=== PATIENT | male | born 1970 | race Caucasian/White ===

== ENCOUNTER 2022-06-06 12:33 | Inpatient (IN) | payer OTHER, SELFPAY ==
[2022-06-06 12:43] VITALS: BP 136/72; BP 99/71; PULSE 76; PULSE 98; RESP 17; TEMP 36.4; O2SAT 97; BMI 27.7
--- NOTE | 2022-06-06 12:44 | ED.PSYCH ---
HPI - Psych General Chief Complaint: Psychiatric Symptoms Stated Complaint: SI w/ no plan Time Seen by Provider: 06/06/22 12:43 Source: patient and EMS Mode of arrival: EMS History of Present Illness HPI Narrative: 51-year-old male with a past medical history of arthritis, asthma, depression, HTN, CAD, seizures, presenting to the ED on Section 12 from [facility] due to SI and auditory hallucinations. Patient states issues with psychiatrist/prescriber over the past year, admits PCP has been managing medications and recently decreased his clonazepam. States he is trying to get into respite however cannot without proper medication prescriptions. Reports SI x months with plan he will not describe. Patient reports history of SI attempt in the past. States recently homeless as of last week, with decreased p.o. intake. Denies illicit substance/ETOH use. Also reports visual hallucinations. Denies fever, chills, cough, abdominal pain, nausea/vomiting MD complaint: suicidal ideation Onset (ago): week(s) Related Data Allergies Allergy/AdvReac Type Severity Reaction Status Date / Time aspirin [ASPIRIN] AdvReac Mild STOMACH Unverified 05/31/20 15:27 UPSET Review of Systems Review of Systems: Constitutional: No Fever, No Chills, No Fatigue, No Malaise ENT/Mouth: No Ear Pain, No Nasal Congestion, No sore throat, No Rhinorrhea, No Swallowing Difficulty Eyes: No Eye Pain, No Swelling, No Redness, No Vision Changes Cardiovascular: No Chest Pain, No SOB, No Palpitations Respiratory: No Cough, No Sputum, No Dyspnea Gastrointestinal: No Nausea, No Vomiting, No Diarrhea, No Constipation, No Abdominal pain Genitourinary: No irregular bleeding, No Dysuria, No Urinary Frequency Musculoskeletal: No joint pain, No Myalgias, No Joint Swelling Skin: No Skin Lesions, No rash Neuro: No Weakness, No Numbness, No No Headache Psych: No Anxiety/Panic, + Depression, + SI,AH/VH, + Social Issues Yes all other systems are reviewed and are negative Constitutional: Constitutional: Reports as per HPI [facility] Past Medical History Attestation statement: The following information was validated with the patient. Social History Social History Patient Tobacco Use Status: Current everyday Tobacco user Smoked in Last 30 Days: Yes Use of substances other than those prescribed or required for medical reasons: No Advance Directives: No Advance Directives Information Provided: Yes Physical Exam Vital Signs: Vital Signs: Last Vital Signs Temp 97.6 F 06/06/22 12:56 Pulse 76 06/06/22 12:56 Resp 17 06/06/22 12:56 BP 99/71 06/06/22 12:56 Pulse Ox 97 06/06/22 12:56 O2 Del Method 06/06/22 12:56 BMI result Body Mass Index 27.7 Const: General: cooperative, healthy appearing and no acute distress Orientation/consciousness: patient oriented x3 Limitations: no limitations HEENT: Head: Yes normal to inspection and Yes atraumatic Ears: hearing grossly normal bilaterally General nose exam: Normal external nose present Face and sinus: Yes normal facial exam Eyes: General: appearance normal, both eyes and all related structures Pupils: Equal, round and reactive pupils present EOM: EOMs intact bilaterally Neck: Neck: Yes normal visual inspection and Yes no meningeal signs Resp: Effort & Inspection: normal respiratory effort and no respiratory distress Auscultation: clear to auscultation bilaterally, no rales, no rhonchi and no wheezes Cardio: Rate: regular rate Heart sounds: S1 normal heart sound present and S2 normal heart sound present GI: Inspection: Yes normal to inspection Palpation (GI): Soft to palpation, nontender, no guarding and not rigid : General: Yes no CVA tenderness Back/Spine/Pelvis: Back: no CVA tenderness Skin: Rashes: no rashes Wounds: no wounds Neuro: General: patient oriented x3, tone normal and no meningeal signs Cranial nerves: Yes CN's II-XII intact bilaterally and Yes Equal, round and reactive pupils present Gait exam (Neuro): Normal gait present Extrem: General: Yes normal to inspection Psych: Appearance: grossly normal Thought content: Suicidality present, Hallucination(s) present and Depressive thoughts present Course Course Course Narrative: -no leukocytosis. Labs otherwise unremarkable. Ethanol negative. COVID-19 negative Patient medically cleared for crisis evaluation. Physician observation initiated at 17:54 -2100--ED care transferred to Dr. Olivier pending Crisis eval MDM - Psych MDM Narrative Medical decision making narrative: 51-year-old male with a past medical history of arthritis, asthma, depression, HTN, CAD, seizures, presenting to the ED on Section 12 from [facility] due to SI and auditory hallucinations. On exam vital signs stable, NAD, nontoxic appearing, patient is bed search from [facility]. Will rule out metabolic/infectious etiology Will obtain clearance labs/EKG and drug screen Differential Diagnosis Differential diagnosis: Likely acute psychosis, suicidal ideation, depression, acute anxiety and substance abuse Medical Records Attestation: I reviewed the patient's medical records. Lab Data Attestation: I reviewed the patient's lab results. Result diagrams: 06/06/22 13:18 06/06/22 13:18 Labs: Lab Results 06/06/22 06/06/22 06/06/22 Range/Units 13:18 13:18 13:18 WBC 6.2 (4.8-10.8) X10*3/uL RBC 4.50 L (4.60-5.80) X10*6/uL Hgb 14.0 (14.0-18.0) g/dl Hct 42.2 (42.0-52.0) % MCV 93.8 (80.0-98.0) fL MCH 31.1 (27.0-33.0) pg MCHC 33.2 (31.0-36.0) g/dl RDW 14.4 (11.0-16.0) % Plt Count 264 (160-400) X10*3/uL MPV 8.4 L (9.4-12.4) fL Immature Gran % (Auto) 0.3 (0.0-0.4) % Neut % (Auto) 44.1 L (45-73) % Lymph % (Auto) 47.9 H (20-40) % [place] % (Auto) 4.1 (2-11) % Eos % (Auto) 2.6 (0-4) % Baso % (Auto) 1.0 (0-2) % Lymph # (Auto) 3.0 (1.2-4.9) X10*3/uL [place] # (Auto) 0.3 (0.1-1.2) X10*3/uL Eos # (Auto) 0.2 (0.0-0.4) X10*3/uL Baso # (Auto) 0.1 (0.0-0.2) X10*3/uL Abs Immat Gran (auto) 0.02 (0.00-0.03) X10*3/uL Absolute Neuts (auto) 2.7 (2.0-8.3) x10*3/uL Absolute Nucleated RBC 0.000 (0.0-0.012) X10*3/uL Nucleated RBC % (auto) 0.0 (0.0-0.2) /100WBC Sodium 141 (135-145) mmol/L Potassium 4.2 (3.3-5.1) mmol/L Chloride 106 (96-108) mmol/L Carbon Dioxide 26 (22-29) mmol/L Anion Gap 13 (12-20) BUN 19 H (9-16) mg/dL Creatinine 1.03 (0.5-1.4) mg/dL Estim Creat Clear Calc 85.2 Estimated GFR > 60 Random Glucose 101 (60-115) mg/dL Calcium 9.4 (8.4-10.2) mg/dL Magnesium 2.0 (1.6-2.6) mg/dL Total Bilirubin < 0.2 (0.0-1.0) mg/dL Direct Bilirubin < 0.2 (0.0-0.5) mg/dL AST 16 (5-37) U/L ALT 26 (0-40) U/L Alkaline Phosphatase 101 (39-117) U/L Total Protein 6.9 (6.5-8.0) g/dL Albumin 4.3 (3.5-5.0) g/dL Urine Opiates Screen (Not Detect) Urine Fentanyl Screen (Not Detect) Ur Barbiturates Screen (Not Detect) Ur Phencyclidine Scrn (Not Detect) Ur Amphetamines Screen (Not Detect) U Benzodiazepines Scrn (Not Detect) Urine Cocaine Screen (Not Detect) U Marijuana (THC) Screen (Not Detect) Ethyl Alcohol < 10 mg/dL COVID-19 (CATHERINE) Negative (Negative) COVID-19 Clin Com See Note 06/06/22 Range/Units 14:46 WBC (4.8-10.8) X10*3/uL RBC (4.60-5.80) X10*6/uL Hgb (14.0-18.0) g/dl Hct (42.0-52.0) % MCV (80.0-98.0) fL MCH (27.0-33.0) pg MCHC (31.0-36.0) g/dl RDW (11.0-16.0) % Plt Count (160-400) X10*3/uL MPV (9.4-12.4) fL Immature Gran % (Auto) (0.0-0.4) % Neut % (Auto) (45-73) % Lymph % (Auto) (20-40) % [place] % (Auto) (2-11) % Eos % (Auto) (0-4) % Baso % (Auto) (0-2) % Lymph # (Auto) (1.2-4.9) X10*3/uL [place] # (Auto) (0.1-1.2) X10*3/uL Eos # (Auto) (0.0-0.4) X10*3/uL Baso # (Auto) (0.0-0.2) X10*3/uL Abs Immat Gran (auto) (0.00-0.03) X10*3/uL Absolute Neuts (auto) (2.0-8.3) x10*3/uL Absolute Nucleated RBC (0.0-0.012) X10*3/uL Nucleated RBC % (auto) (0.0-0.2) /100WBC Sodium (135-145) mmol/L Potassium (3.3-5.1) mmol/L Chloride (96-108) mmol/L Carbon Dioxide (22-29) mmol/L Anion Gap (12-20) BUN (9-16) mg/dL Creatinine (0.5-1.4) mg/dL Estim Creat Clear Calc Estimated GFR Random Glucose (60-115) mg/dL Calcium (8.4-10.2) mg/dL Magnesium (1.6-2.6) mg/dL Total Bilirubin (0.0-1.0) mg/dL Direct Bilirubin (0.0-0.5) mg/dL AST (5-37) U/L ALT (0-40) U/L Alkaline Phosphatase (39-117) U/L Total Protein (6.5-8.0) g/dL Albumin (3.5-5.0) g/dL Urine Opiates Screen Not Detected (Not Detect) Urine Fentanyl Screen Not Detected (Not Detect) Ur Barbiturates Screen Not Detected (Not Detect) Ur Phencyclidine Scrn Not Detected (Not Detect) Ur Amphetamines Screen Not Detected (Not Detect) U Benzodiazepines Scrn Not Detected (Not Detect) Urine Cocaine Screen Not Detected (Not Detect) U Marijuana (THC) Screen Not Detected (Not Detect) Ethyl Alcohol mg/dL COVID-19 (CATHERINE) (Negative) COVID-19 Clin Com Discharge Plan Discharge Clinical Impression: Suicidal ideation, Depression, Hallucinations Patient Disposition: Still a Patient
[2022-06-06 12:56] VITALS: BP 99/71; PULSE 76; RESP 17; TEMP 36.4; O2SAT 97
[2022-06-06] MEDS: Nicotine 21 MG PATCH.TD24 TRANSDERMA (13:07)
[2022-06-06 13:24] LABS: MANUAL DIFF FLAG NO
[2022-06-06 13:25] LABS: Basophils Absolute Auto 0.1 X10*3/uL (0.0-0.2); Eosinophils Absolute Auto 0.2 X10*3/uL (0.0-0.4); Eosinophils Percent Auto 2.6 % (0-4); Hematocrit 42.2 % (42.0-52.0); Imm Gran Abs Auto 0.02 X10*3/uL (0.00-0.03); Imm Gran Pct Auto 0.3 % (0.0-0.4); Lymphocytes Percent Auto 47.9 % (20-40); Mean Corpuscular HGB Conc 33.2 g/dl (31.0-36.0); Mean Corpuscular Hemoglobin 31.1 pg (27.0-33.0); Mean Corpuscular Volume 93.8 fL (80.0-98.0); Mean Platelet Volume 8.4 fL (9.4-12.4); Monocytes Absolute Auto 0.3 X10*3/uL (0.1-1.2); Monocytes Percent Auto 4.1 % (2-11); Neutrophils Absolute Auto 2.7 x10*3/uL (2.0-8.3); Neutrophils Percent Auto 44.1 % (45-73); Platelet Count 264 X10*3/uL (160-400); Red Cell Distribution Width 14.4 % (11.0-16.0); White Blood Count 6.2 X10*3/uL (4.8-10.8)
[2022-06-06 13:39] LABS: COVID-19 Test Negative (Negative); IDNOW Serial# 9DB6401D
[2022-06-06 13:48] LABS: Alanine Aminotransferase 26 U/L (0-40); Albumin Level 4.3 g/dL (3.5-5.0); Alkaline Phosphatase 101 U/L (39-117); Anion Gap 13 (12-20); Aspartate Amino Transferase 16 U/L (5-37); Bilirubin Direct < 0.2 mg/dL (0.0-0.5); Bilirubin Total < 0.2 mg/dL (0.0-1.0); Blood Urea Nitrogen 19 mg/dL (9-16); Calcium 9.4 mg/dL (8.4-10.2); Carbon Dioxide 26 mmol/L (22-29); Chloride 106 mmol/L (96-108); Creatinine Clr Calc Pharmacy 85.2; Estimated Glomerular Filt Rate > 60; Ethanol < 10 mg/dL; Glucose Random 101 mg/dL (60-115); Potassium 4.2 mmol/L (3.3-5.1); Sodium 141 mmol/L (135-145); Total Protein 6.9 g/dL (6.5-8.0)
[2022-06-06 15:20] LABS: Amphetamine Screen Urine Not Detected (Not Detect); Barbiturates, Urine Not Detected (Not Detect); Benzodiazepines Screen Urine Not Detected (Not Detect); Cannabinoid Screen Urine Not Detected (Not Detect); Cocaine Screen Urine Not Detected (Not Detect); Fentanyl, urine Not Detected (Not Detect); Opiate Screen Urine Not Detected (Not Detect); Phencyclidine Screen Urine Not Detected (Not Detect)
[2022-06-06] MEDS: clonazePAM 1 MG TABLET 2 MG PO ×2 (18:00→21:24)
[2022-06-06] MEDS: Propranolol HCL 20 MG TABLET PO (21:24)
[2022-06-06] MEDS: Prazosin HCL 1 MG CAPSULE 2 MG PO (21:25)
[2022-06-06] MEDS: hydrOXYzine HCL 25 MG TABLET PO (21:25)
[2022-06-06] MEDS: TiZANidine HCL 4 MG TABLET PO (21:25)
[2022-06-06] MEDS: OXcarbazepine 300 MG TABLET 1200 MG PO (21:25)
[2022-06-06] MEDS: traZODone HCL 50 MG TABLET PO (21:25)
[2022-06-06] MEDS: QUEtiapine Fumarate 400 MG TABLET PO (21:25)
[2022-06-06 22:07] VITALS: BP 124/79; PULSE 78; RESP 16; TEMP 36.6; O2SAT 98
--- NOTE | 2022-06-07 06:24 | PC.NURSE ---
Patient slept through the night, no distress observed/reported, behavior non concerning, medication compliant, disposition per [facility] is section 12 inpatient bed search, gait independent, elimination intact, VSS, will continue to monitor.
[2022-06-07 06:30] VITALS: BP 111/64; PULSE 83; RESP 17; TEMP 36.7; O2SAT 99
--- NOTE | 2022-06-07 07:38 | PC.NURSE ---
patient appears to remain asleep at present respirations are even and unlabored patient appears in no distress
[2022-06-07] MEDS: Propranolol HCL 20 MG TABLET PO ×2 (08:08→19:36)
[2022-06-07] MEDS: OXcarbazepine 300 MG TABLET 1200 MG PO ×2 (08:08→19:36)
[2022-06-07] MEDS: hydrOXYzine HCL 25 MG TABLET PO ×4 (08:08→19:37)
[2022-06-07] MEDS: QUEtiapine Fumarate 400 MG TABLET PO ×2 (08:08→19:36)
[2022-06-07] MEDS: DULoxetine HCl 60 MG CAPSULE.DR PO (08:08)
[2022-06-07] MEDS: TiZANidine HCL 4 MG TABLET PO ×3 (08:17→19:37)
[2022-06-07] MEDS: Ibuprofen 800 MG TABLET PO (16:42)
[2022-06-07] MEDS: Nicotine 14 MG PATCH.TD24 TRANSDERMA (19:30)
[2022-06-07] MEDS: clonazePAM 1 MG TABLET 2 MG PO (19:36)
[2022-06-07] MEDS: traZODone HCL 50 MG TABLET PO (19:37)
[2022-06-07] MEDS: Prazosin HCL 1 MG CAPSULE 2 MG PO (19:37)
[2022-06-07 19:46] VITALS: BP 108/58; PULSE 97; RESP 16; O2SAT 97
--- NOTE | 2022-06-08 | ECG_ITS ---
Test Reason : GENERAL MEDICAL Blood Pressure : / mmHG Vent. Rate : 081 BPM Atrial Rate : 081 BPM P-R Int : 150 ms QRS Dur : 084 ms QT Int : 358 ms P-R-T Axes : 062 067 048 degrees QTc Int : 415 ms Normal sinus rhythm Normal ECG When compared with ECG of 01-NOV-2015 14:20, No significant change was found Referred By: Brian Robles Electronically Signed By:RIVAS BARRIOS
[2022-06-08 04:46] VITALS: BP 130/82; PULSE 77; RESP 16; TEMP 36.5; O2SAT 97
--- NOTE | 2022-06-08 06:34 | PC.NURSE ---
Patient slept through the night, no distress observed/reported, behavior non concerning, medication compliant, disposition per [facility] is section 12 inpatient bed search, no update on bed search, gait independent, elimination intact, VSS, will continue to monitor.
--- NOTE | 2022-06-08 07:12 | PC.NURSE ---
patient appears to remain asleep at present respirations are even and unlabored patient appears in no distress.
[2022-06-08] MEDS: QUEtiapine Fumarate 400 MG TABLET PO ×2 (07:58→21:44)
[2022-06-08] MEDS: DULoxetine HCl 60 MG CAPSULE.DR PO (07:58)
[2022-06-08] MEDS: hydrOXYzine HCL 25 MG TABLET PO ×4 (07:58→21:44)
[2022-06-08] MEDS: Propranolol HCL 20 MG TABLET PO ×2 (07:58→21:44)
[2022-06-08] MEDS: OXcarbazepine 300 MG TABLET 1200 MG PO ×2 (07:58→21:43)
[2022-06-08] MEDS: Nicotine 21 MG PATCH.TD24 TRANSDERMA (07:58)
[2022-06-08] MEDS: TiZANidine HCL 4 MG TABLET PO ×3 (08:09→21:44)
[2022-06-08 09:35] VITALS: BP 112/63; PULSE 97; RESP 16; TEMP 36.6; O2SAT 98
[2022-06-08] MEDS: Ibuprofen 800 MG TABLET PO (15:39)
[2022-06-08 18:05] VITALS: BP 136/70; PULSE 82; RESP 16; TEMP 36.4; O2SAT 98
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
[2022-06-08] MEDS: clonazePAM 1 MG TABLET 2 MG PO (21:42)
[2022-06-08] MEDS: Prazosin HCL 1 MG CAPSULE 2 MG PO (21:42)
[2022-06-08] MEDS: traZODone HCL 50 MG TABLET PO (21:44)
[2022-06-09] MEDS: hydrOXYzine HCL 25 MG TABLET PO ×4 (08:29→20:42)
[2022-06-09] MEDS: DULoxetine HCl 60 MG CAPSULE.DR PO (08:29)
[2022-06-09] MEDS: QUEtiapine Fumarate 400 MG TABLET PO ×2 (08:29→20:43)
[2022-06-09] MEDS: TiZANidine HCL 4 MG TABLET PO ×3 (08:30→20:42)
[2022-06-09] MEDS: OXcarbazepine 300 MG TABLET 1200 MG PO ×2 (08:30→20:43)
[2022-06-09 09:10] LABS: Alanine Aminotransferase 52 U/L (0-40); Albumin Level 4.5 g/dL (3.5-5.0); Alkaline Phosphatase 108 U/L (39-117); Anion Gap 13 (12-20); Aspartate Amino Transferase 25 U/L (5-37); Bilirubin Total < 0.2 mg/dL (0.0-1.0); Blood Urea Nitrogen 10 mg/dL (9-16); Calcium 9.7 mg/dL (8.4-10.2); Carbon Dioxide 27 mmol/L (22-29); Chloride 99 mmol/L (96-108); Cholesterol 224 mg/dL; Creatinine Clr Calc Pharmacy 129.1; Estimated Glomerular Filt Rate > 60; Glucose Fasting 112 mg/dL (60-99); HDL Cholesterol 54 mg/dL; LDL Cholesterol Calculated 134 mg/dl; Potassium 4.9 mmol/L (3.3-5.1); Sodium 134 mmol/L (135-145); Total Protein 7.1 g/dL (6.5-8.0); Triglycerides 181 mg/dL
[2022-06-09 09:23] VITALS: BP 97/53; PULSE 78; RESP 16; TEMP 36.7; O2SAT 100
[2022-06-09] MEDS: clonazePAM 1 MG TABLET PO ×2 (13:17→20:43)
[2022-06-09] MEDS: Nicotine 14 MG PATCH.TD24 TRANSDERMA (13:17)
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
[2022-06-09 20:35] VITALS: BP 111/59; PULSE 78; RESP 18; TEMP 36.5; O2SAT 97
[2022-06-09] MEDS: Prazosin HCL 1 MG CAPSULE 2 MG PO (20:41)
[2022-06-09] MEDS: Propranolol HCL 20 MG TABLET PO (20:42)
[2022-06-09] MEDS: traZODone HCL 50 MG TABLET PO (20:42)
[2022-06-10] MEDS: Acetaminophen 325 MG TABLET 650 MG PO (03:44)
[2022-06-10 08:00] VITALS: BP 120/60; PULSE 80; TEMP 36.3; O2SAT 98
[2022-06-10] MEDS: clonazePAM 1 MG TABLET PO ×2 (08:37→20:04)
[2022-06-10] MEDS: OXcarbazepine 300 MG TABLET 1200 MG PO ×2 (08:37→20:04)
[2022-06-10] MEDS: QUEtiapine Fumarate 400 MG TABLET PO ×2 (08:37→20:04)
[2022-06-10] MEDS: Propranolol HCL 20 MG TABLET PO ×2 (08:37→20:04)
[2022-06-10] MEDS: TiZANidine HCL 4 MG TABLET PO (08:37)
[2022-06-10] MEDS: DULoxetine HCl 60 MG CAPSULE.DR PO (08:38)
[2022-06-10] MEDS: Nicotine 14 MG PATCH.TD24 TRANSDERMA (08:38)
[2022-06-10] MEDS: hydrOXYzine HCL 25 MG TABLET PO ×4 (08:38→20:04)
[2022-06-10 09:52] VITALS: BP 94/61; PULSE 78
--- NOTE | 2022-06-10 14:33 | P.PNPSI_ITS ---
Subjective Subjective Date of Service: 06/10/22 Reason For Visit: depression, si Interim History: calm and cooperative. agreeable to change muscle relaxant, which he was not on prior to admission, to PRN. also to reduce klonopin to 0.5 mg in the morning and 1 mg at HS. 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 pt reports he is sleeping well, about 7.5 hours, and makes no complaints of anxiety or any other mental health topic. per staff, 3-day up . hoping to discharge to respite. expressed anxiety to staff re the unknown future. went to [facility] at 2300, up at 0330 and on. c/o [facility]. Mental Status Exam Mental Status Exam Narrative: calm, cooperative. goatee. adequately dressed and groomed. cooperative. speech soft and monotone. decr amount, rate. nml latency. thoughts linear and logical. affect constricted, hypo-intense, non-labile. no SI/HI/AVH expressed. Diagnostics Vital Signs (24Hr): Vital Signs - 24 hr 06/09/22 20:35 06/10/22 09:52 06/10/22 08:00 Temperature 97.7 F 97.4 F Pulse Rate 78 78 80 Respiratory Rate 18 Blood Pressure 111/59 L 94/61 120/60 Pulse Oximetry 97 98 Oxygen Delivery Method Room Air Room Air BMI result Body Mass Index 27.7 Labs Results: 06/06/22 13:18 06/09/22 08:27 Labs: Laboratory Results - last 48 hr 06/09/22 08:27 Sodium 134 L Potassium 4.9 Chloride 99 Carbon Dioxide 27 Anion Gap 13 BUN 10 Creatinine 0.68 Estim Creat Clear Calc 129.1 Estimated GFR > 60 Fasting Glucose 112 H Calcium 9.7 Total Bilirubin < 0.2 AST 25 D ALT 52 H Alkaline Phosphatase 108 Total Protein 7.1 Albumin 4.5 Triglycerides 181 Cholesterol 224 LDL Cholesterol, Calc 134 HDL Cholesterol 54 Medications Medications Current Medications Acetaminophen (Acetaminophen 325 Mg Tablet) 650 mg PO Q6H PRN PRN Reason: Headache/Pain Mild Scale (1-3) Last Admin: 06/10/22 03:44 Dose: 650 mg Al Hydroxide/Mg Hydroxide (Magnesium Hydrox/Alum Hydrox 30 Ml Oral.Susp) 30 ml PO Q6H PRN PRN Reason: Heartburn/Nausea Clonazepam (Clonazepam 1 Mg Tablet) 1 mg PO BEDTIME [facility] Clonazepam (Clonazepam 0.5 Mg Tablet) 0.5 mg PO DAILY [facility] Duloxetine HCl (Duloxetine Hcl 60 Mg Capsule.Dr) 60 mg PO DAILY [facility] Last Admin: 06/10/22 08:38 Dose: 60 mg Hydroxyzine HCl (Hydroxyzine Hcl 25 Mg Tablet) 25 mg PO QID [facility] Last Admin: 06/10/22 13:23 Dose: 25 mg Magnesium Hydroxide (Milk Of Magnesia 30 Ml Oral.Susp) 30 ml PO DAILY PRN PRN Reason: Constipation Nicotine (Nicotine 14 Mg Patch.Td24) 14 mg TRANSDERMA DAILY [facility] Last Admin: 06/10/22 08:38 Dose: 14 mg Nicotine Polacrilex (Nicotine Polacrilex Lozenge 2 Mg Lozenge) 2 mg BUCCAL Q1H PRN PRN Reason: Nicotine Cravings Non-Formulary Medication (Deutetrabenazine [Austedo 12mg Start Titr(Wk1-4)]) 1 each PO BID [facility] Patient Own Med (Austedo 6 Mg) 1 each PO BID [facility] Oxcarbazepine (Oxcarbazepine 300 Mg Tablet) 1,200 mg PO BID [facility] Last Admin: 06/10/22 08:37 Dose: 1,200 mg Prazosin HCl (Prazosin Hcl 1 Mg Capsule) 2 mg PO BEDTIME [facility]; Protocol Last Admin: 06/09/22 20:41 Dose: 2 mg Propranolol HCl (Propranolol Hcl 20 Mg Tablet) 20 mg PO BID [facility]; Protocol Last Admin: 06/10/22 08:37 Dose: 20 mg Quetiapine Fumarate (Quetiapine Fumarate 400 Mg Tablet) 400 mg PO BID [facility] Last Admin: 06/10/22 08:37 Dose: 400 mg Tizanidine HCl (Tizanidine Hcl 4 Mg Tablet) 4 mg PO TID PRN PRN Reason: muscle spasm Trazodone HCl (Trazodone Hcl 50 Mg Tablet) 50 mg PO BEDTIME [facility] Last Admin: 06/09/22 20:42 Dose: 50 mg Allergies Allergies Allergy/AdvReac Type Severity Reaction Status Date / Time No Known Allergies Allergy Verified 06/06/22 18:02 Assessment & Plan Assessment & Plan (1) Suicidal ideation: Status: Acute Code(s): R45.851 - Suicidal ideations (2) Depression: Status: Acute Code(s): F32.A - Depression, unspecified (3) Hallucinations: Status: Acute Code(s): R44.3 - Hallucinations, unspecified Plan 06/09: continue meds Rx'ed by PCP. restart austedo 6 BID (Rx sent to [facility] pharmacy for delivery). restart klonopin at 1 mg BID in order to modulate withdrawal, as he recently went from 4 mg daily to nothing. call placed to previous prescriber fazal lam at [facility] child guidance clinic in [facility]. 06/10: make muscle relaxant PRN. decrease klonopin from 1 BID to 0.5/1. call placed to melodie prescriber pt saw 06/05 for the first time, chino. I spent ___25___ minutes with the patient and/or on the patient floor today, greater than?50% of which was spent counseling/coordinating care. Reason for contiued inpatient stay Substantial Risk for: inability to function and rapid decompensation
[2022-06-10] MEDS: Magnesium Hydrox/Alum Hydrox 30 ML ORAL.SUSP PO (15:56)
[2022-06-10] MEDS: Prazosin HCL 1 MG CAPSULE 2 MG PO (20:03)
[2022-06-10] MEDS: traZODone HCL 50 MG TABLET PO (20:04)
[2022-06-10 20:13] VITALS: BP 124/58; PULSE 81
[2022-06-11 08:25] VITALS: BP 118/61; PULSE 85; RESP 18; TEMP 36.4; O2SAT 97
[2022-06-11] MEDS: clonazePAM 0.5 MG TABLET PO (08:53)
[2022-06-11] MEDS: DULoxetine HCl 60 MG CAPSULE.DR PO (08:54)
[2022-06-11] MEDS: OXcarbazepine 300 MG TABLET 1200 MG PO (08:54)
[2022-06-11] MEDS: QUEtiapine Fumarate 400 MG TABLET PO (08:54)
[2022-06-11] MEDS: Propranolol HCL 20 MG TABLET PO (08:54)
[2022-06-11] MEDS: hydrOXYzine HCL 25 MG TABLET PO (08:54)
[2022-06-11] MEDS: Nicotine 14 MG PATCH.TD24 TRANSDERMA (09:16)
[2022-06-11] MEDS: Acetaminophen 325 MG TABLET 650 MG PO (09:22)
[2022-06-11 09:30] LABS: Glucose, Whole Blood 99 mg/dL (60-115)
--- NOTE | 2022-06-11 09:30 | PC.NURSE ---
Patient c/o tingling in his feet and left finger tips. Patient reports that his feet have felt this way for months, the hand is recent. Pt states, I have had issues with my back and disc in the past . Patient VSS BP 118/61 P 85. O2 97% on RA. Pt has full ROM and is ambulating without difficulty. Pt hs c/o chronic back pain since admission. Pt reports that many people in my family have diabetes. Patient request a POC, POC 99 after eating.
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
== END 2022-06-11 11:55 | disposition home or self-care (01) | DRG 885 ==
LOC: HO.ED 06-08 14:40 → HO.PADLT16 06-08 17:30
PROVIDERS: Physician Assistant; Psychiatry & Neurology Psychiatry; Admitting Provider Psychiatry & Neurology Psychiatry; Emergency Provider Student in an Organized Health Care Education/Training Program; PCP Physician Assistant; Visit Provider Psychiatry & Neurology Psychiatry
DX: F33.1 Major depressive disorder, recurrent, moderate (principal); R45.851 Suicidal ideations; F17.210 Nicotine dependence, cigarettes, uncomplicated; Z71.6 Tobacco abuse counseling; Z59.02 Unsheltered homelessness; Z91.51 Personal history of suicidal behavior; G24.01 Drug induced subacute dyskinesia; G40.909 Epilepsy, unspecified, not intractable, without status epilepticus; M19.90 Unspecified osteoarthritis, unspecified site; J45.909 Unspecified asthma, uncomplicated; Z20.822 Contact with and (suspected) exposure to COVID-19; Z87.820 Personal history of traumatic brain injury; Z79.899 Other long term (current) drug therapy
CPT/HCPCS: 36415; 80048; 80053; 80061; 80076; 80307; 82077; 82947; 83735; 85025; 87086; 87635; 93005; 99285

== ENCOUNTER 2022-07-19 11:32 | Emergency (ER) | payer OTHER, SELFPAY ==
--- NOTE | ~2022-07-19 | XR_ITS ---
EXAMINATION: XR CHEST CLINICAL INFORMATION: Chest pain COMPARISON: None TECHNIQUE: Frontal view of the chest was obtained. FINDINGS: No acute finding. No obvious failure or infiltrate. There is no effusion. The cardiac silhouette is within normal limits. The hilar regions are felt to be within normal limits. XR/XR chest 1V IMPRESSION: No acute finding.
--- NOTE | ~2022-07-19 | CT_ITS ---
EXAMINATION: CT HEAD WITHOUT CONTRAST CLINICAL INFORMATION: Headache. COMPARISON: CT scan of the head 05/14/2011. TECHNIQUE: Contiguous axial imaging was performed from the skull base to vertex without intravenous administration of contrast. This CT examination was performed using dose optimization techniques as appropriate, variously including the following: *Automated exposure control *Adjustment of mA and/or kV according to patient size (this includes techniques or standardized protocols for targeted exams where dose is matched to indication/reason for exam; i.e. extremities or head) *Use of iterative reconstruction technique DLP: 768 mGy-cm FINDINGS: There is no acute intracranial hemorrhage or abnormal extra-axial collection. No intracranial mass effect or midline shift. Lateral and third ventricles are normal. No hydrocephalus. Patton-white matter differentiation is grossly preserved and there is no evidence of acute territorial infarct. The calvarium and skull base are intact. Mastoid air cells and middle ear cavities are well aerated. No active paranasal sinus disease. CT/CT head/brain wo IV con IMPRESSION: Normal CT scan of the head.
--- NOTE | 2022-07-19 11:46 | ECG_ITS ---
Test Reason : DIZZINESS Blood Pressure : / mmHG Vent. Rate : 057 BPM Atrial Rate : 057 BPM P-R Int : 162 ms QRS Dur : 096 ms QT Int : 412 ms P-R-T Axes : 058 076 056 degrees QTc Int : 401 ms Sinus bradycardia Otherwise normal ECG When compared with ECG of 08-JUN-2022 13:51, No significant change was found Heart rate has decreased Referred By: Mohsen Tong Electronically Signed By:AIYLN BARNETT MD
[2022-07-19 11:47] LABS: Glucose, Whole Blood 125 mg/dL (60-115)
--- NOTE | 2022-07-19 11:48 | ED.NAVMDI ---
HPI - Nausea/Vomiting/Diarrhea General Chief complaint: Nausea/Vomiting/Diarrhea Stated complaint: NAUSEA,VOMITING,DIZZY X'S DAYS,?NEW MED Time Seen by Provider: 07/19/22 11:40 Source: patient Mode of arrival: ambulatory Limitations: no limitations History of Present Illness HPI Narrative: This is 51 years old male presented to the emergency department by ambulance with chief complaint of nausea vomiting dizziness since this morning. He vomited several times denies any abdominal pain fever chills. MD elicited complaint: nausea and vomiting Onset (ago): hour(s) (8) Description of vomiting: watery Associated nausea: Yes Associated abdominal pain: No Location of pain: none Exacerbating factors: none Relieving factors: none Related Data Home Medications Medication Instructions Recorded Confirmed duloxetine 60 mg capsule,delayed 1 cap PO DAILY 06/06/22 06/06/22 release hydroxyzine HCl 25 mg tablet 1 tab PO QID 06/06/22 06/06/22 oxcarbazepine 600 mg tablet 1,200 mg PO BID 06/06/22 06/06/22 prazosin 2 mg capsule 1 cap PO BEDTIME 06/06/22 06/06/22 propranolol 20 mg tablet 1 tab PO BID 06/06/22 06/06/22 quetiapine 400 mg tablet 1 tab PO BID 06/06/22 06/06/22 tizanidine 4 mg tablet 1 tab PO TID 06/06/22 06/06/22 trazodone 50 mg tablet 1 tab PO BEDTIME 06/06/22 06/06/22 Previous Rx's Medication Instructions Recorded clonazepam 0.5 mg tablet 0.5 mg PO BID 7 days #14 tabs 06/11/22 deutetrabenazine 6 mg (14)-9 mg 1 ea PO PER PKG DIR 30 days #30 ea 06/11/22 (14) tablets in a dose pack (Austedo Tardive Dys Titratn Pk (Week 1-2)) ondansetron 4 mg disintegrating 4 mg PO Q8H 4 days #12 tabs 07/19/22 tablet Allergies Allergy/AdvReac Type Severity Reaction Status Date / Time No Known Allergies Allergy Verified 07/19/22 11:49 Review of Systems Constitutional: Constitutional: Reports no additional constitutional complaints Cardiovascular: Cardiovascular: Reports no additional cardiovascular complaints Respiratory: Respiratory: Reports no additional respiratory complaints Gastrointestinal: Gastrointestinal: Reports nausea PMFSH Social History Social History Household Members: None Household Members Other:: Homeless since last Thursday. Housing: Homeless Do you presently have visiting nurse or other home services: Yes ([employer]) Alcohol intake: never Patient Tobacco Use Status: Current everyday Tobacco user Tobacco use type: Cigarette Cigarette Packs Per Day: 0.5 Cigarettes Per Day: 10.0 Smoked in Last 30 Days: No e-Cigarette/Vaping Use: Never Used Second Hand Smoke Exposure: Yes Use of substances other than those prescribed or required for medical reasons: No Substance Use Type: Former Substance User and Caffiene Advance Directives: No Advance Directives Information Provided: Yes service: No Sexual orientation: Straight/Heterosexual Physical Exam Vital Signs: Vital Signs: Last Vital Signs Temp 97.6 F 07/19/22 13:43 Pulse 69 07/19/22 15:58 Resp 19 07/19/22 15:58 BP 125/74 07/19/22 15:58 Pulse Ox 99 07/19/22 15:58 O2 Del Method 07/19/22 15:58 BMI result Body Mass Index 28.3 Const: General: cooperative, alert and anxious Orientation/consciousness: patient oriented x3 HEENT: Head: Yes normal to inspection General nose exam: Normal external nose present Face and sinus: Yes normal facial exam Mouth: Normal oral and palatal mucosa present Neck: Neck: Yes normal visual inspection and Yes full ROM Chest: Chest palpation & inspection: normal inspection of the chest Resp: Effort & Inspection: normal respiratory effort Auscultation: clear to auscultation bilaterally Cardio: Jugular venous distension: no JVD Rate: regular rate Rhythm: regular rhythm GI: Inspection: Yes normal to inspection Palpation (GI): Soft to palpation, not firm, nontender and no guarding Auscultation: normal bowel sounds Skin: General skin exam: no rashes or lesions noted Neuro: General: patient oriented x3 Course Reevaluation(s) Reevaluation #1: Reexamined at this time asyntomatic ,feels well,tolerating po well MDM - Nausea/Vomiting/Diarrhea Lab Data Result diagrams: 07/19/22 11:48 07/19/22 11:48 Labs: Lab Results 07/19/22 07/19/22 07/19/22 Range/Units 11:42 11:48 11:48 WBC 7.5 (4.8-10.8) X10*3/uL RBC 4.17 L (4.60-5.80) X10*6/uL Hgb 13.3 L (14.0-18.0) g/dl Hct 38.3 L (42.0-52.0) % MCV 91.8 (80.0-98.0) fL MCH 31.9 (27.0-33.0) pg MCHC 34.7 (31.0-36.0) g/dl RDW 13.3 (11.0-16.0) % Plt Count 215 (160-400) X10*3/uL MPV 8.4 L (9.4-12.4) fL Immature Gran % (Auto) 0.1 (0.0-0.4) % Neut % (Auto) 59.4 (45-73) % Lymph % (Auto) 32.6 (20-40) % Arroyo % (Auto) 5.5 (2-11) % Eos % (Auto) 1.7 (0-4) % Baso % (Auto) 0.7 (0-2) % Lymph # (Auto) 2.5 (1.2-4.9) X10*3/uL Arroyo # (Auto) 0.4 (0.1-1.2) X10*3/uL Eos # (Auto) 0.1 (0.0-0.4) X10*3/uL Baso # (Auto) 0.1 (0.0-0.2) X10*3/uL Abs Immat Gran (auto) 0.01 (0.00-0.03) X10*3/uL Absolute Neuts (auto) 4.5 (2.0-8.3) x10*3/uL Absolute Nucleated RBC 0.000 (0.0-0.012) X10*3/uL Nucleated RBC % (auto) 0.0 (0.0-0.2) /100WBC Sodium 138 (135-145) mmol/L Potassium 4.1 (3.3-5.1) mmol/L Chloride 104 (96-108) mmol/L Carbon Dioxide 24 (22-29) mmol/L Anion Gap 14 (12-20) BUN 11 (9-16) mg/dL Creatinine 0.68 (0.5-1.4) mg/dL Estim Creat Clear Calc 130.4 Estimated GFR > 60 POC Glucose 125 H (60-115) mg/dL Random Glucose 122 H (60-115) mg/dL Calcium 8.4 D (8.4-10.2) mg/dL Total Bilirubin 0.3 (0.0-1.0) mg/dL AST 15 (5-37) U/L ALT 21 (0-40) U/L Alkaline Phosphatase 101 (39-117) U/L Troponin I High Sens (<3.5-35.0) ng/L Total Protein 6.0 L (6.5-8.0) g/dL Albumin 4.0 (3.5-5.0) g/dL Urine Color Urine Appearance Urine pH (5.0-9.0) Ur Specific [place] (1.005-1.025) Urine Protein (Neg-Trace) mg/dL Urine Glucose (UA) (Negative) mg/dL Urine Ketones (Negative) mg/dL Urine Blood (Negative) Urine Nitrite (Negative) Ur Leukocyte Esterase (Negative) Urine Opiates Screen (Not Detect) Urine Fentanyl Screen (Not Detect) Ur Barbiturates Screen (Not Detect) Ur Phencyclidine Scrn (Not Detect) Ur Amphetamines Screen (Not Detect) U Benzodiazepines Scrn (Not Detect) Urine Cocaine Screen (Not Detect) U Marijuana (THC) Screen (Not Detect) COVID-19 (CATHERINE) (Negative) COVID-19 Clin Com 07/19/22 07/19/22 07/19/22 Range/Units 11:48 12:15 12:30 WBC (4.8-10.8) X10*3/uL RBC (4.60-5.80) X10*6/uL Hgb (14.0-18.0) g/dl Hct (42.0-52.0) % MCV (80.0-98.0) fL MCH (27.0-33.0) pg MCHC (31.0-36.0) g/dl RDW (11.0-16.0) % Plt Count (160-400) X10*3/uL MPV (9.4-12.4) fL Immature Gran % (Auto) (0.0-0.4) % Neut % (Auto) (45-73) % Lymph % (Auto) (20-40) % Arroyo % (Auto) (2-11) % Eos % (Auto) (0-4) % Baso % (Auto) (0-2) % Lymph # (Auto) (1.2-4.9) X10*3/uL Ar[place]o # (Auto) (0.1-1.2) X10*3/uL Eos # (Auto) (0.0-0.4) X10*3/uL Baso # (Auto) (0.0-0.2) X10*3/uL Abs Immat Gran (auto) (0.00-0.03) X10*3/uL Absolute Neuts (auto) (2.0-8.3) x10*3/uL Absolute Nucleated RBC (0.0-0.012) X10*3/uL Nucleated RBC % (auto) (0.0-0.2) /100WBC Sodium (135-145) mmol/L Potassium (3.3-5.1) mmol/L Chloride (96-108) mmol/L Carbon Dioxide (22-29) mmol/L Anion Gap (12-20) BUN (9-16) mg/dL Creatinine (0.5-1.4) mg/dL Estim Creat Clear Calc Estimated GFR POC Glucose (60-115) mg/dL Random Glucose (60-115) mg/dL Calcium (8.4-10.2) mg/dL Total Bilirubin (0.0-1.0) mg/dL AST (5-37) U/L ALT (0-40) U/L Alkaline Phosphatase (39-117) U/L Troponin I High Sens < 3.5 (<3.5-35.0) ng/L Total Protein (6.5-8.0) g/dL Albumin (3.5-5.0) g/dL Urine Color Dark Yellow Urine Appearance Clear Urine pH 6.0 (5.0-9.0) Ur Specific [place] >= 1.030 H (1.005-1.025) Urine Protein Trace (Neg-Trace) mg/dL Urine Glucose (UA) Negative (Negative) mg/dL Urine Ketones Trace (Negative) mg/dL Urine Blood Negative (Negative) Urine Nitrite Negative (Negative) Ur Leukocyte Esterase Negative (Negative) Urine Opiates Screen (Not Detect) Urine Fentanyl Screen (Not Detect) Ur Barbiturates Screen (Not Detect) Ur Phencyclidine Scrn (Not Detect) Ur Amphetamines Screen (Not Detect) U Benzodiazepines Scrn (Not Detect) Urine Cocaine Screen (Not Detect) U Marijuana (THC) Screen (Not Detect) COVID-19 (CATHERINE) Negative (Negative) COVID-19 Clin Com See Note 07/19/22 Range/Units 12:30 WBC (4.8-10.8) X10*3/uL RBC (4.60-5.80) X10*6/uL Hgb (14.0-18.0) g/dl Hct (42.0-52.0) % MCV (80.0-98.0) fL MCH (27.0-33.0) pg MCHC (31.0-36.0) g/dl RDW (11.0-16.0) % Plt Count (160-400) X10*3/uL MPV (9.4-12.4) fL Immature Gran % (Auto) (0.0-0.4) % Neut % (Auto) (45-73) % Lymph % (Auto) (20-40) % Arroyo % (Auto) (2-11) % Eos % (Auto) (0-4) % Baso % (Auto) (0-2) % Lymph # (Auto) (1.2-4.9) X10*3/uL [place] # (Auto) (0.1-1.2) X10*3/uL Eos # (Auto) (0.0-0.4) X10*3/uL Baso # (Auto) (0.0-0.2) X10*3/uL Abs Immat Gran (auto) (0.00-0.03) X10*3/uL Absolute Neuts (auto) (2.0-8.3) x10*3/uL Absolute Nucleated RBC (0.0-0.012) X10*3/uL Nucleated RBC % (auto) (0.0-0.2) /100WBC Sodium (135-145) mmol/L Potassium (3.3-5.1) mmol/L Chloride (96-108) mmol/L Carbon Dioxide (22-29) mmol/L Anion Gap (12-20) BUN (9-16) mg/dL Creatinine (0.5-1.4) mg/dL Estim Creat Clear Calc Estimated GFR POC Glucose (60-115) mg/dL Random Glucose (60-115) mg/dL Calcium (8.4-10.2) mg/dL Total Bilirubin (0.0-1.0) mg/dL AST (5-37) U/L ALT (0-40) U/L Alkaline Phosphatase (39-117) U/L Troponin I High Sens (<3.5-35.0) ng/L Total Protein (6.5-8.0) g/dL Albumin (3.5-5.0) g/dL Urine Color Urine Appearance Urine pH (5.0-9.0) Ur Specific [place] (1.005-1.025) Urine Protein (Neg-Trace) mg/dL Urine Glucose (UA) (Negative) mg/dL Urine Ketones (Negative) mg/dL Urine Blood (Negative) Urine Nitrite (Negative) Ur Leukocyte Esterase (Negative) Urine Opiates Screen Not Detected (Not Detect) Urine Fentanyl Screen Not Detected (Not Detect) Ur Barbiturates Screen Not Detected (Not Detect) Ur Phencyclidine Scrn Not Detected (Not Detect) Ur Amphetamines Screen Not Detected (Not Detect) U Benzodiazepines Scrn Not Detected (Not Detect) Urine Cocaine Screen POSITIVE H (Not Detect) U Marijuana (THC) Screen Not Detected (Not Detect) COVID-19 (CATHERINE) (Negative) COVID-19 Clin Com Imaging Data CT scan - head: Radiologist's impression: TECHNIQUE: Contiguous axial imaging was performed from the skull base to vertex without intravenous administration of contrast. This CT examination was performed using dose optimization techniques as appropriate, variously including the following: *Automated exposure control *Adjustment of mA and/or kV according to patient size (this includes techniques or standardized protocols for targeted exams where dose is matched to indication/reason for exam; i.e. extremities or head) *Use of iterative reconstruction technique DLP: 768 mGy-cm FINDINGS: There is no acute intracranial hemorrhage or abnormal extra-axial collection. No intracranial mass effect or midline shift. Lateral and third ventricles are normal. No hydrocephalus. Patton-white matter differentiation is grossly preserved and there is no evidence of acute territorial infarct. The calvarium and skull base are intact. Mastoid air cells and middle ear cavities are well aerated. No active paranasal sinus disease. ? CT/CT head/brain wo IV con IMPRESSION: Normal CT scan of the head. Dictated By: Agustin Lee MD Signed By: <Electronically signed by Agustin Lee MD in OV> 07/19/22 1423 ECG Data ECG interpretation date: 07/19/22 ECG interpretation time: 11:55 Pacemaker model: Normal sinus rhythm a rate 57 normal intervals no ischemic changes Discharge Plan Discharge Clinical Impression: Vomiting, Dizziness, Cocaine abuse Patient Disposition: Home, Self-Care Instructions: Acute Nausea and Vomiting (ED), Dizziness (ED) Prescriptions: New ondansetron 4 mg tablet,disintegrating 4 mg PO Q8H 4 Days Qty: 12 0RF No Action trazodone 50 mg tablet 1 tab PO BEDTIME tizanidine 4 mg tablet 1 tab PO TID oxcarbazepine 600 mg tablet 1,200 mg PO BID hydroxyzine HCl 25 mg tablet 1 tab PO QID propranolol 20 mg tablet 1 tab PO BID prazosin 2 mg capsule 1 cap PO BEDTIME duloxetine 60 mg capsule,delayed release(DR/EC) 1 cap PO DAILY quetiapine 400 mg tablet 1 tab PO BID clonazepam 0.5 mg Tablet 0.5 mg PO BID 7 Days Qty: 14 0RF Austedo TD Titratn Pk (Wk 1-2) 6 mg (14)- 9 mg (14) tablets,dose pack 1 ea PO PER PKG DIR 30 Days Qty: 30 0RF Referrals: Physician,Unknown J [Primary Care Provider] - 3 days
[2022-07-19 11:49] VITALS: BP 123/73; PULSE 56; RESP 18; TEMP 37.1; O2SAT 97; BMI 28.3
[2022-07-19 11:56] VITALS: BP 131/68; PULSE 57; RESP 18; O2SAT 98
[2022-07-19 11:58] LABS: MANUAL DIFF FLAG NO
[2022-07-19 11:59] LABS: Basophils Absolute Auto 0.1 X10*3/uL (0.0-0.2); Basophils Percent Auto 0.7 % (0-2); Eosinophils Absolute Auto 0.1 X10*3/uL (0.0-0.4); Eosinophils Percent Auto 1.7 % (0-4); Hematocrit 38.3 % (42.0-52.0); Hemoglobin 13.3 g/dl (14.0-18.0); Imm Gran Abs Auto 0.01 X10*3/uL (0.00-0.03); Imm Gran Pct Auto 0.1 % (0.0-0.4); Lymphocytes Absolute Auto 2.5 X10*3/uL (1.2-4.9); Lymphocytes Percent Auto 32.6 % (20-40); Mean Corpuscular HGB Conc 34.7 g/dl (31.0-36.0); Mean Corpuscular Hemoglobin 31.9 pg (27.0-33.0); Mean Corpuscular Volume 91.8 fL (80.0-98.0); Mean Platelet Volume 8.4 fL (9.4-12.4); Monocytes Absolute Auto 0.4 X10*3/uL (0.1-1.2); Monocytes Percent Auto 5.5 % (2-11); Neutrophils Absolute Auto 4.5 x10*3/uL (2.0-8.3); Neutrophils Percent Auto 59.4 % (45-73); Platelet Count 215 X10*3/uL (160-400); Red Blood Count 4.17 X10*6/uL (4.60-5.80); Red Cell Distribution Width 13.3 % (11.0-16.0); White Blood Count 7.5 X10*3/uL (4.8-10.8)
--- NOTE | 2022-07-19 11:59 | PC.NURSE ---
becoming less responsive after triage. arousable with sternal rub only. pupils remain 4-5mm. diaphoresis improving.
[2022-07-19] MEDS: ondansetron HCL 4 MG/2 ML VIAL IVPUSH (12:03)
[2022-07-19] MEDS: 0.9 % Sodium Chloride 1,000 ML 999 ML IVCONT (12:03)
[2022-07-19 12:25] LABS: Alanine Aminotransferase 21 U/L (0-40); Alkaline Phosphatase 101 U/L (39-117); Anion Gap 14 (12-20); Aspartate Amino Transferase 15 U/L (5-37); Bilirubin Total 0.3 mg/dL (0.0-1.0); Blood Urea Nitrogen 11 mg/dL (9-16); Calcium 8.4 mg/dL (8.4-10.2); Carbon Dioxide 24 mmol/L (22-29); Chloride 104 mmol/L (96-108); Creatinine Clr Calc Pharmacy 130.4; Estimated Glomerular Filt Rate > 60; Glucose Random 122 mg/dL (60-115); Potassium 4.1 mmol/L (3.3-5.1); Sodium 138 mmol/L (135-145)
[2022-07-19 12:28] LABS: Troponin-I High Sensitivity < 3.5 ng/L (<3.5-35.0)
[2022-07-19 12:34] LABS: COVID-19 Test Negative (Negative)
[2022-07-19 12:38] LABS: Appearance Urine Clear; Color Urine Dark Yellow; Glucose Urine UA Negative (Negative); Leukocyte Esterase Urine Negative (Negative); Nitrite Urine Negative (Negative); Specific Gravity - Urine >= 1.030 (1.005-1.025); Urine Blood Negative (Negative); Urine Ketones Trace mg/dL (Negative); Urine Protein Trace mg/dL (Neg-Trace)
[2022-07-19 12:48] LABS: Amphetamine Screen Urine Not Detected (Not Detect); Barbiturates, Urine Not Detected (Not Detect); Benzodiazepines Screen Urine Not Detected (Not Detect); Cannabinoid Screen Urine Not Detected (Not Detect); Cocaine Screen Urine POSITIVE (Not Detect); Fentanyl, urine Not Detected (Not Detect); Opiate Screen Urine Not Detected (Not Detect); Phencyclidine Screen Urine Not Detected (Not Detect)
--- NOTE | 2022-07-19 13:16 | PC.NURSE ---
arousable to light touch now. to CT
--- OUTSIDE RECORDS SUMMARY | 2022-07-19 13:28 | XMS_ITS | Continuity of Care Document ---
:1970 Author Organization [facility] Address Unavailable , Care Team Providers Name Role Phone Dave DAVILA, Checo Primary Care Physician [place] [facility] [place](s[place] 10/30/21 - 11/30/21 [facility] Attending Physician: Chong Nation MD Admitting Physician: Chong Nation MD Allergies, Adverse Reactions, Alerts No Known Allergies Immunizations Not Given Vaccine Date Status Refusal Reason pneumococcal 23-valent vaccine 12/04/17 Not Given P atient Refuses influenza virus vaccine, inactivated 12/04/17 Not Given Patient Refuses Medications benztropine 2 mg oral tablet 1 tablet = 2 mg, By Mouth, Daily at bedtime, 0 Refills, Maintenance, 01/15/16 8:57:27 Start Date: 01/15/16 Status: OrderedClonAZEPAM Tablet = 2 mg, By Mouth, 3 times a day, 0 Refills, Maintenance, 04/19/14 15:27:42, Tablet Start Date: 04/19/14 Status: OrderedCymbalta Capsule = 90 mg, By Mouth, Daily, 0 Refills, Maintenance, 05/10/15 14:38:51 Start Date: 05/10/15 Status: OrderedHaldol Tablet 4 mg, By Mouth, 2 times a day, Maintenance, 04/19/14 15:27:12 Start Date: 04/19/14 Status: Orderedibuprofen 600 mg oral tablet 600 mg, 1, tablet, By Mouth, 3 times a day, PRN, Refills 0, Maintenance, as needed for pain, 01/15/16 8:58:37 Start Date: 01/15/16 Status: OrderedOXcarbazepine 600 mg oral tablet 2 tablet, By Mouth, 2 times a day, # 120 tablet, 7 Refills, Maintenance, 11/19/21 16:46:00 EST, [facility] Start Date: 11/19/21 Stop Date: 07/17/22 Status: OrderedProAir HFA 90 mcg/inh inhalation aerosol with adapter 2, puffs, Inhalation, Every 4 hours, PRN, # 8.5 Gm, Refills 0, Maintenance, 01/15/16 9:00:09, Aerosol Start Date: 01/15/16 Status: OrderedSeroquel 200 mg oral tablet 2 tablet = 400 mg, By Mouth, Daily, takes 100mg not 200, 0 Refills, Maintenance, 04/24/11 14:06:08 EDT Start Date: 04/24/11 Status: OrderedSeroquel 400 mg oral tablet 1 tablet = 400 mg, By Mouth, Daily at bedtime, 0 Refills, Maintenance Start Date: 04/24/11 Status: Ordered Problem List Condition Effective Dates Status Health Status Informant Lumbar disc prolapse with Active radiculopathy(Confirmed) Social History Social History Type Response Smoking Status Current every day smoker; To bacco user in household: Yes entered on: 01/18/14 Sex
--- OUTSIDE RECORDS SUMMARY | 2022-07-19 13:28 | XMS_ITS | Continuity of Care Document ---
:1970 Author Organization [facility] Address Unavailable , Care Team Providers Name Role Phone Dave DAVILA, Checo Primary Care Physician Encounter [facility] [place] Date(s): 01/26/21 - 05/26/21 [facility] Attending Physician: Ro Austin MD Admitting Physician: Ro Austin MD Allergies, Adverse Reactions, Alerts Substance Reaction Severity Status NKA Active Immunizations Not Given Vaccine Date Status Refusal [...] By Mouth, 2 times a day, # 112 tablet, 5 Refills, Maintenance, 03/26/21 11:30:00 EDT, [facility] Start Date: 03/26/21 Status: OrderedProAir HFA 90 mcg/inh inhalation aerosol [...]
--- OUTSIDE RECORDS SUMMARY | 2022-07-19 13:28 | XMS_ITS | Continuity of Care Document ---
:1970 Author Organization [facility] Address Unavailable , Care Team Providers Name Role Phone Dave DAVILA, [place] Primary Care Physician [place] [facility] [place](s): 11/19/21 - 12/19/21 [facility] Attending Physician: Blanca Crandall Admitting Physician: Blanca Crandall Referring Physician: Blanca Crandall Allergies, Adverse Reactions, Alerts No Known Allergies [...] 120 tablet, 7 Refills, Maintenance, 11/19/21 16:46:00 [facility] Start Date: 11/19/21 Stop Date: 07/17/22 [...]
--- OUTSIDE RECORDS SUMMARY | 2022-07-19 13:28 | XMS_ITS | Continuity of Care Document ---
:1970 Author Organization [facility] Address Unavailable , Care Team Providers Name Role Phone Dave DAVILA, Checo Primary Care Physician Encounter [facility] [place] Date(s): 10/31/21 - 11/30/21 [facility] Allergies, Adverse Reactions, Alerts No Known Allergies [...] 120 tablet, 7 Refills, Maintenance, 11/19/21 16:46:00 [facility] Start Date: 11/19/21 Stop Date: 07/17/22 [...]
--- OUTSIDE RECORDS SUMMARY | 2022-07-19 13:28 | XMS_ITS | Continuity of Care Document ---
:1970 Author Organization [facility] Address Unavailable , Care Team Providers Name Role Phone Dave DAVILA, [place] Primary Care Physician [place] [facility] [place]11[place]21 [place] 11/20/21 [facility] Attending Physician: Annalisa Patel Admitting Physician: Annalisa Patel Referring Physician: Checo Acosta NP Allergies, Adverse Reactions, Alerts No Known Allergies [...] 120 tablet, 7 Refills, Maintenance, 11/19/21 16:46:00 [facility] Start Date: 11/19/21 Stop Date: 07/17/22 [...]
--- OUTSIDE RECORDS SUMMARY | 2022-07-19 13:28 | XMS_ITS | Continuity of Care Document ---
:1970 Author Organization [facility] Address [address] [facility], [address] [facility], [address] [place] [id number]- Care Team Providers Name Role Phone Dave DAVILA, Checo Primary Care Physician [place] [facility] [place] 11/05/20 - 12/05/20 [facility] [address] [facility], [address] [facility], [address] [place] [id number] Allergies, Adverse Reactions, Alerts Substance Reaction Severity [...] pain, 01/15/16 8:58:37 Start Date: 01/15/16 Status: OrderedProAir HFA 90 mcg/inh inhalation aerosol [...] 0 Refills, Maintenance Start Date: 04/24/11 Status: OrderedTrileptal 600 mg oral tablet 2 tablet = 1,200 mg, By Mouth, 2 times a day, # 120 tablet, 2 Refills, Maintenance, 11/05/20 14:47:00 EST, [facility], 168, cm, 11/15/18 9:25:00 EST, [place] Start Date: 11/05/20 Stop Date: 02/03/21 Status: Ordered Problem List Condition Effective Dates Status Health Status Informant Lumbar disc prolapse with Active radiculopathy(Confirmed) Social History Social History Type Response Smoking Status Current every day smoker; To bacco user in household: Yes entered on: 01/18/14 Sex
--- OUTSIDE RECORDS SUMMARY | 2022-07-19 13:28 | XMS_ITS | Continuity of Care Document ---
:1970 Author Organization [facility] Address [address] [place] [address], [address] [facility], [address] [place] [phone]- Care Team Providers Name Role Phone Dave DAVILA, [place]co Primary Care Physician [place] [facility] [place] 07/13/20 - 11/10/20 [facility] [address] [place] [address], [address] [facility], [address] [place] [id number] Attending Physician: Ro Austin MD Admitting Physician: [...] Refills 0, Maintenance, as needed for pain, 05/03/16 8:58:37 Start Date: 01/15/16 Status: OrderedProAir HFA [...] tablet, 2 Refills, Maintenance, 11/05/20 14:47:00 EST, [facility], 168, cm, 11/15/18 9:25:00 EST, [place] Start Date: 11/05/20 Stop Date: 02/03/21 Status: Ordered Problem List Condition Effective Dates Status Health Status Informant Lumbar disc prolapse with Active radiculopathy(Confirmed) Social History Social History Type Response Smoking Status Current every day smoker; To bacco user in household: Yes entered on: 01/18/14 Sex
--- OUTSIDE RECORDS SUMMARY | 2022-07-19 13:28 | XMS_ITS | Continuity of Care Document ---
:1970 Author Organization [facility] Address [address] [facility], 3rd Floor, [address] [place] [phone]- Care Team Providers Name Role Phone Dave DAVILA, [place]co Primary Care Physician [place] [facility] [place] 03/26/20 - 04/25/20 [facility] [address], [address] Floor, [address] [place] [address]- [facility] Allergies, Adverse Reactions, Alerts Substance Reaction Severity Status NKA Active Immunizations Not Given Vaccine Date Status Refusal Reason influenza virus vaccine, inactivated 12/04/17 Not Given Patient Refuses pneumococcal 23-valent vaccine 12/04/17 Not Given P atient Refuses Medications benztropine 2 mg oral tablet [...] 01/15/16 Status: OrderedSeroquel 200 mg oral tablet 1 tablet = 200 mg, By Mouth, Daily, takes 100mg not 200, 0 Refills, Maintenance, 04/24/11 14:06:08 Start Date: 04/24/11 Status: OrderedSeroquel 400 mg oral tablet 1 tablet = 400 mg, By Mouth, Daily at bedtime, 0 Refills, Maintenance Start Date: 04/24/11 Status: OrderedTrileptal 600 mg oral tablet 2 tablet = 1,200 mg, By Mouth, 2 times a day, # 120 tablet, 5 Refills, Maintenance, 03/26/20 16:29:00 EDT, [facility], 168, cm, 11/15/18 9:25:00 EST, Height, Dry Weight Start Date: 03/26/20 Stop Date: 09/22/20 Status: Ordered Problem List Condition Effective Dates Status Health Status Informant Lumbar disc prolapse with Active radiculopathy(Confirmed) Social History Social History Type Response Smoking Status Current every day smoker; To bacco user in household: Yes entered on: 01/18/14 Sex
[2022-07-19 13:38] VITALS: BP 121/76; PULSE 68; RESP 20; TEMP 35.7; O2SAT 97
[2022-07-19 13:43] VITALS: TEMP 36.4
[2022-07-19 14:48] VITALS: BP 108/63; PULSE 74; RESP 16; O2SAT 98
[2022-07-19 15:58] VITALS: BP 125/74; PULSE 69; RESP 19; O2SAT 99
--- NOTE | 2022-07-19 15:59 | PC.NURSE ---
pt a&ox3, vss, reporting some dizziness, denies any pain/nausea at this time, pt given urinal. no new orders at this time.
== END 2022-07-19 17:02 | disposition home or self-care (01) ==
PROVIDERS: Emergency Provider Emergency Medicine
DX: R11.2 Nausea with vomiting, unspecified (principal); R42 Dizziness and giddiness; F14.10 Cocaine abuse, uncomplicated; F17.210 Nicotine dependence, cigarettes, uncomplicated; Z20.822 Contact with and (suspected) exposure to COVID-19; Z79.899 Other long term (current) drug therapy
CPT/HCPCS: 70450; 71045; 80053; 80307; 81003; 82947; 84484; 85025; 87635; 93005; 96360; 96361; 96374; 96375; 99284; 99285; J2405

== ENCOUNTER 2022-09-30 08:20 | Emergency (ER) | payer OTHER, SELFPAY ==
[2022-09-30 08:45] VITALS: BP 111/65; PULSE 74; RESP 14; TEMP 36; O2SAT 97; BMI 28.8
--- NOTE | 2022-09-30 09:32 | ED_ITS ---
HPI - Back Pain/Injury General Chief Complaint: Back Pain/Injury Stated Complaint: Lower back pain/L side toes numb Time Seen by Provider: 09/30/22 09:08 Source: patient Mode of arrival: ambulatory Limitations: no limitations History of Present Illness HPI Narrative: 52 year old male with a past medical history of chronic back pain, s/p laminectomy presenting to the ED c/o acute on chronic left sided low back pain radiating down LLE x mos. Endorses numbness and tingling to left toes and left fingertips. Patient was recently evaluated for similar symptoms & scheduled for outpatient neuro stimulating testing, and follow-up with his back surgeon. Patient took Tylenol and Ibuprofen w/o relief. Denies recent trauma/injury, headache, dizziness, fever, chills, myalgias, weakness, abdominal pain, bladder incontinence/retention, urinary frequency/hesitancy, or change in bowel habits. MD elicited complaint: back pain Pain scale (0-10): 9 Related Data Home Medications Medication Instructions Recorded Confirmed duloxetine 60 mg capsule,delayed 1 cap PO DAILY 06/06/22 06/06/22 release hydroxyzine HCl 25 mg tablet 1 tab PO QID 06/06/22 06/06/22 oxcarbazepine 600 mg tablet 1,200 mg PO BID 06/06/22 06/06/22 prazosin 2 mg capsule 1 cap PO BEDTIME 06/06/22 06/06/22 propranolol 20 mg tablet 1 tab PO BID 06/06/22 06/06/22 quetiapine 400 mg tablet 1 tab PO BID 06/06/22 06/06/22 tizanidine 4 mg tablet 1 tab PO TID 06/06/22 06/06/22 trazodone 50 mg tablet 1 tab PO BEDTIME 06/06/22 06/06/22 Previous Rx's Medication Instructions Recorded clonazepam 0.5 mg tablet 0.5 mg PO BID 7 days #14 tabs 06/11/22 deutetrabenazine 6 mg (14)-9 mg 1 ea PO PER PKG DIR 30 days #30 ea 06/11/22 (14) tablets in a dose pack (Austedo Tardive Dys Titratn Pk (Week 1-2)) ondansetron 4 mg disintegrating 4 mg PO Q8H 4 days #12 tabs 07/19/22 tablet acetaminophen 500 mg tablet 500 mg PO Q6H PRN fever or pain 09/30/22 (Tylenol Extra Strength) #14 tabs cyclobenzaprine 5 mg tablet 5 mg PO Q8H PRN pain (scale score 09/30/22 7-10) 5 days #14 tabs lidocaine 5 % topical patch 1 patch topical DAILY PRN pain #30 09/30/22 (Lidoderm) ea naproxen 500 mg tablet 500 mg PO BID PRN pain 10 days #20 09/30/22 tabs prednisone 20 mg tablet 40 mg PO DAILY 5 days #10 tabs 09/30/22 Allergies Allergy/AdvReac Type Severity Reaction Status Date / Time No Known Allergies Allergy Verified 07/19/22 11:49 Review of Systems Review of Systems: Constitutional: No Fever, No Chills ENT/Mouth: No headache Cardiovascular: No Chest Pain, No SOB Respiratory: No Cough, No Sputum, No Wheezing Gastrointestinal: No Nausea, No Vomiting, No Diarrhea, No Constipation, No Abdominal pain Genitourinary: No Dysuria, No Urinary Frequency, No Hematuria, No Urinary Incontinence/retention, No Urgency, No Flank Pain Musculoskeletal: + joint pain, No Myalgias, No Joint Swelling Skin: No Skin Lesions, No rash Neuro: No Weakness, + Numbness, + Paresthesias, no dizziness Yes all other systems are reviewed and are negative Constitutional: Constitutional: Reports as per [facility] Past Medical History Attestation statement: The following information was validated with the patient. Social History Social History Household Members: None Household Members Other:: Homeless since last Thursday. Housing: Homeless Do you presently have visiting nurse or other home services: Yes ([employer]) Alcohol intake: unknown Patient Tobacco Use Status: Current everyday Tobacco user Tobacco use type: Cigarette Cigarette Packs Per Day: 0.5 Cigarettes Per Day: 10.0 Smoked in Last 30 Days: No e-Cigarette/Vaping Use: Never Used Second Hand Smoke Exposure: Yes Use of substances other than those prescribed or required for medical reasons: Refusing to respond Substance Use Type: Former Substance User and Caffiene Advance Directives: No Advance Directives Information Provided: No service: No Sexual orientation: Straight/Heterosexual Physical Exam Vital Signs: Vital Signs: Last Vital Signs Temp 98.2 F 09/30/22 09:42 Pulse 86 09/30/22 09:42 Resp 16 09/30/22 09:42 BP 118/72 09/30/22 09:42 Pulse Ox 97 09/30/22 09:42 O2 Del Method 09/30/22 09:42 BMI result Body Mass Index 28.8 Const: General: cooperative, healthy appearing and no acute distress Orientation/consciousness: patient oriented x3 Limitations: no limitations HEENT: Head: Yes normal to inspection and Yes atraumatic Ears: hearing grossly normal bilaterally General nose exam: Normal external nose present Face and sinus: Yes normal facial exam Eyes: General: appearance normal, both eyes and all related structures EOM: EOMs intact bilaterally Neck: Neck: Yes normal visual inspection and Yes no meningeal signs Resp: Effort & Inspection: normal respiratory effort and no respiratory distress Auscultation: clear to auscultation bilaterally Cardio: Rate: regular rate Heart sounds: S1 normal heart sound present and S2 normal heart sound present GI: Inspection: Yes normal to inspection Palpation (GI): Soft to palpation, nontender, no guarding and not rigid : General: Yes no CVA tenderness Back/Spine/Pelvis: Other: No midline thoracic/lumbar spinous tenderness/step-off or deformity. + left lumbar MSK/paraspinal tenderness to palpation Back: no CVA tenderness Thoracic/Lumbar Spine: thoracic and lumbar spine normal to inspection Skin: Rashes: no rashes Wounds: no wounds Neuro: Other: Strength intact throughout. No saddle anesthesia. Sensation intact to light touch. Neurovascular intact distally General: patient oriented x3, gait normal, tone normal, moves all extremities, Normal light touch and pain sensation, no meningeal signs, no focal motor deficits and normal sensation to monofilament Cognition (Neuro): normal cognition Gait exam (Neuro): Normal gait present Motor exam (neuro): 5/5 motor strength present throughout Extrem: General: Yes normal to inspection Right upper extremity: normal to inspection Left upper extremity: normal to inspection Right lower extremity: normal to inspection Left lower extremity: normal to inspection Medications Administered Discontinued Medications Generic Name Dose Route Start Last Admin Trade Name Freq PRN Reason Stop Dose Admin Ketorolac Tromethamine 30 mg 09/30/22 09:37 09/30/22 09:56 Ketorolac Tromethamine 30 Mg/Ml Vial IM 09/30/22 09:38 30 mg ONCE ONE Administration Lidocaine 1 patch 09/30/22 09:37 09/30/22 09:56 Lidocaine 4 % Patch Adh..Patch TRANSDERMA 09/30/22 09:38 1 patch ONCE ONE Administration Protocol Medical Decision Making Medical Decision Making [facility] Narrative: 52 year old male with a past medical history of chronic back pain, s/p laminectomy presenting to the ED c/o acute on chronic left sided low back pain radiating down LLE x mos. On exam vital signs stable, NAD, nontoxic appearing, left lower lumbar MSK tenderness on exam, no midline spinous tenderness or red flag symptoms. Ambulating with steady gait. Abdomen soft and nontender. Concern for MSK pain/strain/muscle spasming vs herniated disc/sciatica. Lower suspicion for cauda equina, cord compression, epidural abscess or fracture. No evidence of infection. Plan: IM Toradol, symptomatic remedies, scheduled follow-up Differential Diagnosis Differential Diagnoses: The differential diagnosis associated with the presentation includes as above External Record Review External record reviewed: Outpatient record Prescription Management I considered prescription management with: Pain Medication Discharge Plan Discharge Clinical Impression: Lumbar radiculopathy Patient Disposition: Home, Self-Care Instructions: Lumbar Radiculopathy (ED) Additional Instructions: Your pain is likely musculoskeletal Flexeril is a muscle relaxer, take at night as it makes you drowsy, do not drive, drink alcohol, or operate machinery while taking it Naproxen as an anti-inflammatory / pain medication, take with food Lidoderm patches are numbing patches, apply to painful area In addition take Tylenol at home If symptoms persist or worsen, pain becomes unbearable, you developed urinary retention or incontinence, or weakness return to the ED Prescriptions: New prednisone 20 mg tablet 40 mg PO DAILY 5 Days Qty: 10 0RF acetaminophen [Tylenol Extra Strength] 500 mg tablet 500 mg PO Q6H PRN (Reason: fever or pain) Qty: 14 0RF lidocaine [Lidoderm] 5 % adhesive patch,medicated 1 patch topical DAILY MDD remove after 12 hours PRN (Reason: pain) Qty: 30 0RF Rx Instructions: leave on most painful area for up to 12 hrs naproxen 500 mg tablet 500 mg PO BID PRN (Reason: pain) 10 Days Qty: 20 0RF cyclobenzaprine 5 mg tablet 5 mg PO Q8H PRN (Reason: pain (scale score 7-10)) 5 Days Qty: 14 0RF No Action ondansetron 4 mg tablet,disintegrating 4 mg PO Q8H 4 Days Qty: 12 0RF trazodone 50 mg tablet 1 tab PO BEDTIME tizanidine 4 mg tablet 1 tab PO TID oxcarbazepine 600 mg tablet 1,200 mg PO BID hydroxyzine HCl 25 mg tablet 1 tab PO QID propranolol 20 mg tablet 1 tab PO BID prazosin 2 mg capsule 1 cap PO BEDTIME duloxetine 60 mg capsule,delayed release(DR/EC) 1 cap PO DAILY quetiapine 400 mg tablet 1 tab PO BID clonazepam 0.5 mg Tablet 0.5 mg PO BID 7 Days Qty: 14 0RF Austedo TD Titratn Pk (Wk 1-2) 6 mg (14)- 9 mg (14) tablets,dose pack 1 ea PO PER PKG DIR 30 Days Qty: 30 0RF Referrals: Awa Velez PA-C [Primary Care Provider] - Interventions: ED Discharge Assessment Last Done: 09/30/22 09:55
[2022-09-30 09:42] VITALS: BP 118/72; PULSE 86; RESP 16; TEMP 36.8; O2SAT 97
[2022-09-30] MEDS: Ketorolac Tromethamine 30 MG/ML VIAL IM (09:56)
[2022-09-30] MEDS: Lidocaine 4 % Patch ADH..PATCH 1 PATCH TRANSDERMA (09:56)
== END 2022-09-30 09:55 | disposition home or self-care (01) ==
PROVIDERS: Emergency Provider Emergency Medicine; PCP Physician Assistant
DX: M54.16 Radiculopathy, lumbar region (principal); M54.50 Low back pain, unspecified; F17.210 Nicotine dependence, cigarettes, uncomplicated; Z71.6 Tobacco abuse counseling
CPT/HCPCS: 96372; 99284; J1885

== ENCOUNTER 2022-10-02 10:08 | Emergency (ER) | payer OTHER, SELFPAY ==
[2022-10-02 10:13] VITALS: BP 105/69; BP 126/84; PULSE 102; PULSE 98; RESP 18; TEMP 36.9; O2SAT 97; O2SAT 98; BMI 28.8
--- OUTSIDE RECORDS SUMMARY | 2022-10-02 10:38 | XMS_ITS | Continuity of Care Document ---
:1970 Author Organization [facility] Address [address] [id number]- Care Team Providers Name Role Phone Awa Rose Primary Care Physician [place] [facility] [place] Date(s): 08/21/22 - 08/21/[address] [address]- Encounter Diagnosis Back pain (Final) - 08/21/22 Headache (Final) - 08/21/22 Bipolar disorder (Final) - 08/21/22 Seizure disorder (Final) - 08/21/22 Discharge Disposition: A-D/C Home Attending Physician: Genevieve Toledo DO Admitting Physician: Genevieve Toledo DO Referring Physician: Not on Staff, Referring MD Allergies, Adverse Reactions, Alerts No Known [...] 120 tablet, 7 Refills, Maintenance, 11/19/21 16:46:00 [facility] Start Date: 11/19/21 Stop Date: 07/17/22 [...] Date: 04/24/11 Status: Ordered Problem List Condition Confirmation Course Effective Dates Status Health I nformant Status Lumbar disc prolapse Confirmed Active with radiculopathy Vital Signs Most recent to oldest [Reference Range]: 1 Oxygen Saturation [94-100 %] 97 % (08/21/22 11:11 AM) Pulse Rate [55-90 bpm] 63 bpm (08/21/22 11:11 AM) Blood Pressure [90-138/55-84 mm Hg] 102/93 mm Hg (08/21/22 11:11 AM) Respiratory Rate [16-30 br/min] 20 br/min (08/21/22 11:11 AM) Temperature [96.8-100.4 DegF] 98.9 DegF (08/21/22 11:11 AM) Mode of Delivery (Oxygen) Room air (08/21/22 11:11 AM) Blood pressure sites Arm, right (08/21/22 11:11 AM) Temperature Route Oral (08/21/22 11:11 AM) Social History Social History Type Response Smoking Status Current every day smoker; To bacco user in household: Yes entered on: 01/18/14 Sex Patient Care team information Care Team PersonnelName: Kacey Suarez Position: [facility] RN Member Role: Primary Care Nurse Name: Awa Rose Position: Reference Physician Member Role: PCP Address: Address: [address] [place] [address]- Name: Parris Alves RN Position: [facility] ED RN W/OE and Tasks Member Role: Patient Care Provider Name: Alissa Steele MD Position: [facility] Resident Member Role: ED Resident Address: Address: [address] [place] [address] [place] [address]- Name: Owen Perkins Position: [facility] ED TA [facility] Member Role: Patient Care Provider Name: Genevieve Toledo DO Position: [facility] ED Medicine MD Member Role: Admitting Physician Address: Address: [address] [place] [address]- Care Team Related PersonsName: WANDY PORRAS Address: home [address] [place] [address]
[2022-10-02 11:07] LABS: Hemoglobin 14.4 g/dl (14.0-18.0); Mean Corpuscular HGB Conc 35.1 g/dl (31.0-36.0); Mean Corpuscular Hemoglobin 31.9 pg (27.0-33.0); Mean Corpuscular Volume 90.9 fL (80.0-98.0); Mean Platelet Volume 8.5 fL (9.4-12.4); Platelet Count 290 X10*3/uL (160-400); Red Blood Count 4.51 X10*6/uL (4.60-5.80); Red Cell Distribution Width 13.9 % (11.0-16.0); White Blood Count 13.8 X10*3/uL (4.8-10.8)
[2022-10-02 11:21] LABS: COVID-19 Test Negative (Negative); IDNOW Serial# 9DB6401D
[2022-10-02 11:22] LABS: Anion Gap 13 (12-20); Blood Urea Nitrogen 17 mg/dL (9-16); Calcium 9.3 mg/dL (8.4-10.2); Carbon Dioxide 20 mmol/L (22-29); Chloride 107 mmol/L (96-108); Creatinine Clr Calc Pharmacy 117.9; Estimated Glomerular Filt Rate > 60; Glucose Random 106 mg/dL (60-115); Potassium 4.6 mmol/L (3.3-5.1); Sodium 135 mmol/L (135-145)
--- NOTE | 2022-10-02 11:24 | PC.NURSE ---
pt had blood labs drawn and sent, pt has been conversing on telephone in stretcher, rr even/unlabored. no evidence of focal weakness or neuro deficit. moving all 4 extremities equally in room.
--- NOTE | 2022-10-02 12:21 | ED.WEAKNESS ---
HPI - Weakness General Chief complaint: Weakness Stated complaint: L SIDE TINGLING/NUMBNESS X'S MONTHS,SEEN FOR SAME Time Seen by Provider: 10/02/22 11:55 Source: patient Mode of arrival: ambulatory Limitations: no limitations History of Present Illness HPI Narrative: 52-year-old male who presents emergency department for evaluation of numbness and weakness of his left upper and lower extremity. The patient states that approximately 2-3 months he was having numbness and tingling in his left hand and fingers. He states that approximately 3 days prior he developed numbness in his left arm and left leg. He states this numbness is constant. He states that he has some weakness in his left hand and left arm which is new over the past 3 days. He denies pain in his extremities. He denied headache, head injury, nausea, vomiting, loss of bowel or bladder control. The patient states that he has had 2 episodes of optic neuritis in 2009. He has never been diagnosed with MS. He does have a history of seizures. He also has a history of chronic back pain and had a laminectomy in 2010. The patient was seen in the emergency department on 09/30/2022 with similar complaints. The patient was diagnosed with lumbar radiculopathy and started on prednisone, naproxen, Tylenol and Flexeril. He states that state taking these medications his numbness has persisted in is getting worse. Related Data Home Medications Medication Instructions Recorded Confirmed duloxetine 60 mg capsule,delayed 1 cap PO DAILY 06/06/22 06/06/22 release hydroxyzine HCl 25 mg tablet 1 tab PO QID 06/06/22 06/06/22 oxcarbazepine 600 mg tablet 1,200 mg PO BID 06/06/22 06/06/22 prazosin 2 mg capsule 1 cap PO BEDTIME 06/06/22 06/06/22 propranolol 20 mg tablet 1 tab PO BID 06/06/22 06/06/22 quetiapine 400 mg tablet 1 tab PO BID 06/06/22 06/06/22 tizanidine 4 mg tablet 1 tab PO TID 06/06/22 06/06/22 trazodone 50 mg tablet 1 tab PO BEDTIME 06/06/22 06/06/22 Previous Rx's Medication Instructions Recorded clonazepam 0.5 mg tablet 0.5 mg PO BID 7 days #14 tabs 06/11/22 deutetrabenazine 6 mg (14)-9 mg 1 ea PO PER PKG DIR 30 days #30 ea 06/11/22 (14) tablets in a dose pack (Austedo Tardive Dys Titratn Pk (Week 1-2)) ondansetron 4 mg disintegrating 4 mg PO Q8H 4 days #12 tabs 07/19/22 tablet acetaminophen 500 mg tablet 500 mg PO Q6H PRN fever or pain 09/30/22 (Tylenol Extra Strength) #14 tabs cyclobenzaprine 5 mg tablet 5 mg PO Q8H PRN pain (scale score 09/30/22 7-10) 5 days #14 tabs lidocaine 5 % topical patch 1 patch topical DAILY PRN pain #30 09/30/22 (Lidoderm) ea naproxen 500 mg tablet 500 mg PO BID PRN pain 10 days #20 09/30/22 tabs prednisone 20 mg tablet 40 mg PO DAILY 5 days #10 tabs 09/30/22 Allergies Allergy/AdvReac Type Severity Reaction Status Date / Time No Known Allergies Allergy Verified 07/19/22 11:49 Review of Systems Review of Systems: Yes all other systems are reviewed and are negative [facility] Past Medical History [facility] Narrative: Past medical history: Seizure disorder, chronic back pain with lumbar laminectomy 2010. Social history: The patient does smoke cigarettes. He denies alcohol use. He denies drug use. Social History Social History Household Members: None Household Members Other:: Homeless since last Thursday. Housing: Homeless Do you presently have visiting nurse or other home services: Yes ([employer]) Alcohol intake: unknown Patient Tobacco Use Status: Current everyday Tobacco user Tobacco use type: Cigarette Cigarette Packs Per Day: 0.5 Cigarettes Per Day: 10.0 Smoked in Last 30 Days: No e-Cigarette/Vaping Use: Never Used Second Hand Smoke Exposure: Yes Use of substances other than those prescribed or required for medical reasons: Unknown Substance Use Type: Former Substance User and Caffiene Advance Directives: No service: No Sexual orientation: Straight/Heterosexual Physical Exam Vital Signs: Vital Signs: Last Vital Signs Temp 98.5 F 10/02/22 10:13 Pulse 98 10/02/22 10:13 Resp 18 10/02/22 10:13 BP 105/69 10/02/22 10:13 Pulse Ox 97 10/02/22 10:13 O2 Del Method 10/02/22 10:13 BMI result Body Mass Index 28.8 Const: General: cooperative and no acute distress Limitations: no limitations HEENT: Head: Yes normal to inspection, Yes normocephalic and Yes atraumatic Ears: external ears normal General nose exam: Normal external nose present Face and sinus: Yes normal facial exam Mouth: Normal oral and palatal mucosa present Throat: Yes posterior oropharynx normal Eyes: General: appearance normal, both eyes and all related structures Pupils: Equal, round and reactive pupils present Neck: Neck: Yes normal visual inspection, Yes no lymphadenopathy, Yes trachea midline and Yes supple Chest: Chest palpation & inspection: normal inspection of the chest and normal palpation of entire chest wall Resp: Effort & Inspection: normal respiratory effort and able to speak in complete sentences Auscultation: clear to auscultation bilaterally Cardio: Rate: regular rate Rhythm: regular rhythm Heart sounds: S1 normal heart sound present, S2 normal heart sound present and no murmurs GI: Inspection: Yes normal to inspection Palpation (GI): Soft to palpation, nontender and no guarding Auscultation: normal bowel sounds : General: Yes no CVA tenderness Back/Spine/Pelvis: Back: no CVA tenderness Skin: General skin exam: no rashes or lesions noted Neuro: Other: Cranial nerves 2-12 are intact, patient's strength in the left upper extremity slightly diminished compared to the right, he has normal strength the hand set for opponents of his left thumb and 5th finger which is slightly weaker than the right. Patient does have decreased light touch in left arm and left leg. Cranial nerves: Yes Equal, round and reactive pupils present Extrem: General: Yes normal to inspection Psych: Appearance: grossly normal Speech and movement: Normal speech and movement present Affect: normal affect Attitude: cooperative Thought process: Normal thought process present Thought content: Normal thought content present Medical Decision Making Medical Decision Making MDM Narrative: 52-year-old male who presents emergency department for evaluation of numbness in his left hand times 2-3 months with new numbness in his left arm and left leg x3 days. Patient does have weakness in his left hand compared to his right hand. The patient's physical examination did reveal some slight weakness of the left hand compared to the right and diminished light touch in his left arm and left leg compared to the right. Patient does have a history of optic neuritis and concerned that he might have multiple sclerosis is the cause of his symptoms. Laboratory evaluation including a CBC, CMP COVID-19 were ordered. MRI of the patient's brain and neck with and without contrast was ordered and we will obtain this if we have developed ability today. 1232: My interpretation patient's laboratory evaluation is as follows: WBCs elevated 13,800. BMP is normal. COVID-19 was negative. 1347: We were unable to obtain an MRI on this patient at this time. I did tell the patient that he needs to talk to his neurologist to schedule an outpatient MRI to evaluate him for possible MS is the cause of his symptoms. The patient understood this discussion was discharged home. Differential Diagnosis Differential diagnosis includes was not limited to brain tumor with mass effect, multiple sclerosis, cervical disc disease, lumbar disc disease Lab Data [facility] Lab Attestation statement: I reviewed the patient's lab results. Please see the [facility] for interpretation patient's labs. 10/02/22 10:59 10/02/22 10:59 Labs: Lab Results 10/02/22 10/02/22 10/02/22 Range/Units 10:59 10:59 10:59 WBC 13.8 H (4.8-10.8) X10*3/uL RBC 4.51 L (4.60-5.80) X10*6/uL Hgb 14.4 (14.0-18.0) g/dl Hct 41.0 L (42.0-52.0) % MCV 90.9 (80.0-98.0) fL MCH 31.9 (27.0-33.0) pg MCHC 35.1 (31.0-36.0) g/dl RDW 13.9 (11.0-16.0) % Plt Count 290 D (160-400) X10*3/uL MPV 8.5 L (9.4-12.4) fL Absolute Nucleated RBC 0.000 (0.0-0.012) X10*3/uL Nucleated RBC % (auto) 0.0 (0.0-0.2) /100WBC Sodium 135 (135-145) mmol/L Potassium 4.6 (3.3-5.1) mmol/L Chloride 107 (96-108) mmol/L Carbon Dioxide 20 L (22-29) mmol/L Anion Gap 13 (12-20) BUN 17 H (9-16) mg/dL Creatinine 0.75 (0.5-1.4) mg/dL Estim Creat Clear Calc 117.9 Estimated GFR > 60 Random Glucose 106 (60-115) mg/dL Calcium 9.3 D (8.4-10.2) mg/dL Urine Color Urine Appearance Urine pH (5.0-9.0) Ur Specific [place] (1.005-1.025) Urine Protein (Neg-Trace) mg/dL Urine Glucose (UA) (Negative) mg/dL Urine Ketones (Negative) mg/dL Urine Blood (Negative) Urine Nitrite (Negative) Ur Leukocyte Esterase (Negative) Urine RBC (0-2) /HPF Urine WBC (0-5) /HPF Ur Squamous Epith Cells (0-2) /HPF Urine Bacteria (None Seen) Hyaline Casts (0-2) /LPF COVID-19 (CATHERINE) Negative (Negative) COVID-19 Clin Com See Note 10/02/22 Range/Units 12:34 WBC (4.8-10.8) X10*3/uL RBC (4.60-5.80) X10*6/uL Hgb (14.0-18.0) g/dl Hct (42.0-52.0) % MCV (80.0-98.0) fL MCH (27.0-33.0) pg MCHC (31.0-36.0) g/dl RDW (11.0-16.0) % Plt Count (160-400) X10*3/uL MPV (9.4-12.4) fL Absolute Nucleated RBC (0.0-0.012) X10*3/uL Nucleated RBC % (auto) (0.0-0.2) /100WBC Sodium (135-145) mmol/L Potassium (3.3-5.1) mmol/L Chloride (96-108) mmol/L Carbon Dioxide (22-29) mmol/L Anion Gap (12-20) BUN (9-16) mg/dL Creatinine (0.5-1.4) mg/dL Estim Creat Clear Calc Estimated GFR Random Glucose (60-115) mg/dL Calcium (8.4-10.2) mg/dL Urine Color Dark Yellow Urine Appearance Clear Urine pH 6.0 (5.0-9.0) Ur Specific [place] >= 1.030 H (1.005-1.025) Urine Protein 30 (1+) H (Neg-Trace) mg/dL Urine Glucose (UA) Negative (Negative) mg/dL Urine Ketones Trace (Negative) mg/dL Urine Blood Negative (Negative) Urine Nitrite Negative (Negative) Ur Leukocyte Esterase Negative (Negative) Urine RBC 0-2 (0-2) /HPF Urine WBC 0-5 (0-5) /HPF Ur Squamous Epith Cells 0-2 (0-2) /HPF Urine Bacteria None Seen (None Seen) Hyaline Casts 0-2 (0-2) /LPF COVID-19 (CTAHERINE) (Negative) COVID-19 Clin Com Discharge Plan Discharge Clinical Impression: Left arm numbness, Left leg numbness Patient Disposition: Home, Self-Care Instructions: Paresthesia (ED) Additional Instructions: At this time I do not have a clear cause for the numbness in your left arm and left leg. Multiple sclerosis (MS) is a possibility. Call your neurologist for evaluation in his schedule an outpatient MRI of your brain and neck to evaluate for possible MS. Continue taking medications as prescribed by the provider in the emergency department on 09/30/2022 to see if this improves her symptoms. Follow-up with your doctor in 2 days. Please return to the emergency department if your symptoms get worse or if you develop any symptoms that are concerning to you. Prescriptions: No Action ondansetron 4 mg tablet,disintegrating 4 mg PO Q8H 4 Days Qty: 12 0RF prednisone 20 mg tablet 40 mg PO DAILY 5 Days Qty: 10 0RF acetaminophen [Tylenol Extra Strength] 500 mg tablet 500 mg PO Q6H PRN (Reason: fever or pain) Qty: 14 0RF lidocaine [Lidoderm] 5 % adhesive patch,medicated 1 patch topical DAILY MDD remove after 12 hours PRN (Reason: pain) Qty: 30 0RF Rx Instructions: leave on most painful area for up to 12 hrs naproxen 500 mg tablet 500 mg PO BID PRN (Reason: pain) 10 Days Qty: 20 0RF cyclobenzaprine 5 mg tablet 5 mg PO Q8H PRN (Reason: pain (scale score 7-10)) 5 Days Qty: 14 0RF trazodone 50 mg tablet 1 tab PO BEDTIME tizanidine 4 mg tablet 1 tab PO TID oxcarbazepine 600 mg tablet 1,200 mg PO BID hydroxyzine HCl 25 mg tablet 1 tab PO QID propranolol 20 mg tablet 1 tab PO BID prazosin 2 mg capsule 1 cap PO BEDTIME duloxetine 60 mg capsule,delayed release(DR/EC) 1 cap PO DAILY quetiapine 400 mg tablet 1 tab PO BID clonazepam 0.5 mg Tablet 0.5 mg PO BID 7 Days Qty: 14 0RF [place] TD Titratn Pk (Wk 1-2) 6 mg (14)- 9 mg (14) tablets,dose pack 1 ea PO PER PKG DIR 30 Days Qty: 30 0RF
[2022-10-02 12:48] LABS: Appearance Urine Clear; Color Urine Dark Yellow; Glucose Urine UA Negative (Negative); Leukocyte Esterase Urine Negative (Negative); Nitrite Urine Negative (Negative); Specific Gravity - Urine >= 1.030 (1.005-1.025); UMIC TRIGGER UACC YES; Urine Blood Negative (Negative); Urine Ketones Trace mg/dL (Negative); Urine Protein 30 (1+) mg/dL (Neg-Trace)
[2022-10-02 12:53] LABS: Bacteria Urine None Seen (None Seen); Hyaline Casts Urine 0-2 /LPF (0-2); RBC Urine 0-2 /HPF (0-2); Squamous Epithelial Cell Urine 0-2 /HPF (0-2); WBC Urine 0-5 /HPF (0-5)
[2022-10-02 13:54] VITALS: BP 101/65; PULSE 102; RESP 18; O2SAT 97
== END 2022-10-02 14:36 | disposition home or self-care (01) ==
PROVIDERS: Emergency Provider Emergency Medicine Emergency Medical Services; PCP Physician Assistant
DX: R20.0 Anesthesia of skin (principal); M79.602 Pain in left arm; F17.210 Nicotine dependence, cigarettes, uncomplicated; Z20.822 Contact with and (suspected) exposure to COVID-19; Z20.828 Contact with and (suspected) exposure to other viral communicable diseases; Z79.899 Other long term (current) drug therapy; Z71.6 Tobacco abuse counseling
CPT/HCPCS: 80048; 81001; 85027; 87635; 99284